=== PATIENT | female | born 1975 | race Two or more races ===

== ENCOUNTER 2016-10-05 10:38 | Day surgery (SDC) | payer OTHER ==
[~2016-10-05 10:38] MED LIST: CETI10TA22 PO; FLUT9.9S NS; LISI1TAB3 PO; MULT-460 PO; NORE0.3520 PO
[2016-10-05] MEDS ORDERED: PROPOFOL 20 ML IV ONE (10:50)
[2016-10-05] MEDS ORDERED: SURGICEL HEMOSTAT 4X8 EACH. ONE (10:50)
[2016-10-05] MEDS ORDERED: LIDOCAINE 2% PF Vial for OR 5 ML VIAL. ONE (10:50)
[2016-10-05] MEDS ORDERED: ROCURONIUM 50 MG/5 ML VIAL. ONE (10:50)
[2016-10-05] MEDS ORDERED: fentaNYL PF VIAL 250 MCG/5 ML VIAL ONE (10:51)
[2016-10-05] MEDS ORDERED: BUPIVAC MPF-EPI 0.5%-1:200000 30 ML VIAL. ONE (10:51)
[2016-10-05] MEDS ORDERED: DEXAMETHASONE SOD PHOS 20 MG/5 ML VIAL. ONE (10:51)
[2016-10-05] MEDS ORDERED: IOHEXOL 300 MG/ML 50 ML VIAL. ONE (10:51)
[2016-10-05] MEDS ORDERED: MIDAZOLAM HCL/PF 2 MG/2 ML VIAL. ONE (10:51)
[2016-10-05] MEDS ORDERED: ONDANSETRON PF 4 MG/2 ML VIAL. ONE (10:51)
[2016-10-05] MEDS ORDERED: fentaNYL PF VIAL 100 MCG/2 ML VIAL IV PRN ×2 (11:00)
[2016-10-05] MEDS ORDERED: HYDROmorphone 2 MG/ML VIAL IV PRN (11:00)
[2016-10-05] MEDS ORDERED: LIDOCAINE 1% 1 ML SYRINGE. ID PRN (11:00)
[2016-10-05] MEDS ORDERED: ONDANSETRON PF 4 MG/2 ML VIAL. IV PRN (11:00)
[2016-10-05] MEDS ORDERED: PROCHLORPERAZINE 10 MG/2 ML VIAL. IV PRN (11:00)
[2016-10-05] MEDS ORDERED: IV RINGERS,LACTATED 1000ML 1,000 ML IV SCH (11:00)
[2016-10-05] MEDS ORDERED: MORPHINE SULFATE 2 MG/ML DISP.SYRIN. IV PRN (11:00)
[2016-10-05] MEDS ORDERED: KETOROLAC 60 MG/2 ML INJ FOR OR. ONE (12:54)
[2016-10-05] MEDS ORDERED: GLYCOPYRROLATE 1 MG/5 ML VIAL. ONE (13:05)
[2016-10-05] MEDS ORDERED: NEOSTIGMINE METHYLSULFATE 5 MG/5 ML SYRINGE. ONE (13:05)
--- NOTE | 2016-10-05 13:34 | RAD ---
Intraoperative cholangiogram History: Left, cholecystectomy. Procedure: One fluoroscopic image was obtained of the right upper quadrant. The cystic duct was cannulated with surgeon and contrast was injected. Total fluoroscopic time was 12 seconds. Findings: The common hepatic bile duct and common bile duct are patent, without evidence of intraluminal filling defect or obstruction. Contrast empties normally into the duodenum. Impression: Unremarkable intraoperative cholangiogram. No evidence of choledocholithiasis.
[2016-10-05 14:01] LABS: NEG OBC UR NEG; POS OBC UR POS
[2016-10-05] MEDS ORDERED: OXYC-323 PO (14:10)
--- NOTE | 2016-10-05 14:12 | PDOC ---
BRIEF OPERATIVE NOTE Pre-Op Diagnosis cholelithiasis lap balbir, ioc k marques pitts ebl 10 ivf 1000 prabhu well to rr stable. CHERYL LEE MD Oct 05, 2016 14:12
[2016-10-05] MEDS ORDERED: oxyCODONE/APAP 5/325 1 TAB TABLET PO ONE ×2 (14:30)
[2016-10-05 15:25] VITALS: BP 150/71
--- NOTE | 2016-10-07 01:21 | OP ---
DATE OF SURGERY: 10/05/2016 PREOPERATIVE DIAGNOSIS: Symptomatic cholelithiasis. POSTOPERATIVE DIAGNOSIS: Symptomatic cholelithiasis. PROCEDURE: Laparoscopic cholecystectomy with intraoperative cholangiogram. SURGEON: Cheryl Lee M.D. ANESTHESIA: General. ESTIMATED BLOOD LOSS: 10 mL. INTRAVENOUS FLUIDS: 1000 mL. INDICATIONS: The patient is a 40-year-old female who has symptoms consistent with biliary colic. She is here for cholecystectomy. FINDINGS: Intraoperative cholangiogram is normal. DESCRIPTION OF PROCEDURE: After informed consent was obtained, the patient was taken to the operating room and placed in supine position. After adequate induction of general anesthesia, she was prepped and draped in usual sterile fashion. An umbilical skin incision was made with a scalpel, subcutaneous tissues with a hemostat. [facility] was used to grab the fascia and lift it anteriorly. Veress was used to gain access to the peritoneal cavity. Low opening pressures confirmed intraperitoneal placement of Veress. Pneumoperitoneum to 15 mmHg was established followed by placement of 5 mm port. A 5 mm 30 degree lens was inserted, which revealed good port placement. No evidence of entry trauma. She was placed head up, rotated towards her left. Three additional ports were placed under direct vision. The sites were injected with local anesthetic. Skin incisions were made and an 11 mm epigastric and two 5 mm right lateral ports were placed. The fundus of the gallbladder was retracted over liver and slightly towards the right. Infundibulum was retracted towards the right and towards her toes to open triangle of Calot. The leading peritoneal edge was scored with cautery medially and laterally and carried back towards the liver at the level of the infundibulum. [place] dissector was then used to dissect out the triangle of Calot. At the completion of dissection, 2 structures were seen leading directly to the gallbladder, one was a cystic artery, one was a cystic duct. The gallbladder had been dissected away from the liver bed and the gallbladder had been dissected away from the cystic plate. There was no extraneous tissue within the triangle of Calot and the base of the gallbladder was free of extraneous tissue. Two clips were placed on cystic artery proximally, one distally and a clip was placed on cystic duct adjacent to the gallbladder. Ductotomy was made with scissors. Intraoperative cholangiogram showed free flow of contrast. The cystic duct, common bile duct, common hepatic, left and right hepatics, intrahepatic radicles, free flow of contrast into the duodenum with no filling defects. The cholangiogram was interpreted as normal and completed. Also, of note, at the beginning of the surgery with traction on the infundibulum, there was a small defect in the infundibulum that was closed with a clip bumper operator, so there would not be spillage of bile throughout the case. After removing the cholangiogram catheter, 3 clips were placed on the cystic duct, distal to the ductotomy. Ductotomy completed with scissors. Care was taken to make sure that the clips encompass the entire diameter of the duct and did not encroach upon undissected tissue. The cystic artery was transected sharply. The gallbladder was removed from the bed of cautery and placed in laparoscopic bag and brought out through the epigastric incision. There was a little bit of bleeding from the liver bed that was controlled with cautery. Right upper quadrant was irrigated. Irrigant returned clear. No bleeding or bile leakage noted. Fascial closure device was used to close the fascia at the epigastric incision using 0 Vicryl suture. The ports removed under direct vision. They were hemostatic. Pneumoperitoneum was desufflated. Skin incisions were closed with 4-0 Monocryl in subcuticular fashion. Sterile dressings were placed. She tolerated the procedure well. There were no apparent complications. She was transferred in stable condition to the recovery room. Also of note, prior to removing the final port, the right upper quadrant was inspected one final time and that remained hemostatic and without bile leakage. CHERYL LEE MD DR: THERESA/thierno JOB#: [id number] / [id number] ASYA Tavares MD
--- NOTE | 2016-10-09 13:12 | PATHOLOGY ---
PATHOLOGY REPORT * * * * * * * * FINAL DIAGNOSIS: Gallbladder, laparoscopic cholecystectomy: - Cholelithiasis. - Cholesterolosis. - Chronic cholecystitis. COMMENT: There is no evidence of malignancy. REPORT ELECTRONICALLY SIGNED BY: Tejas Calderon M.D. DATE/TIME: 10/09/2016 13:11 * * * * * * * * GROSS PATHOLOGY: Received in formalin labeled "Lizeth Dixon, gallbladder and contents," is a 9.5 x 3.0 x 2.8 cm, intact gallbladder with bile-stained serosal surfaces. Opening the gallbladder reveals a velvety, bile-stained mucosa with mild, diffuse cholesterolosis, and an average wall thickness of 0.1 cm. A single light green, nodular calculus is present, and no masses are noted grossly. [employer] sections from the body and fundus are submitted along with the proximal margin in cassette A1. (CAA; 10/08/2016) INITIAL CPT CODE(S): A; 54751 Professional services performed [email or web address] [address] Technical services performed by [facility] at [address] [place] [address] [address], [place] [address]. SPECIMEN(S) RECEIVED: A.Gallbladder and contents CLINICAL HISTORY: Cholelithiasis PATIENT: LIZETH DIXON /AGE: 610/29/1975 (Age: 40) PATIENT #: [id number] ALT CASE #: SPECIMEN COLLECTION DATE: 10/05/2016 SPECIMEN RECEIVED DATE: 10/05/2016 [facility] - [address] [place] [address] - PHONE: [phone] * * * END OF REPORT * * *
== END 2016-10-05 15:42 | disposition home or self-care (01) ==
LOC: SURG 10:38
PROVIDERS: ATTEND Surgery
DX: K80.80 Other cholelithiasis without obstruction (principal); K21.9 Gastro-esophageal reflux disease without esophagitis; I10 Essential (primary) hypertension
CPT/HCPCS: 47563; 74300; 81025; C1782; J0690; J0780; J1100; J1885; J2250; J2405; J2704; J2710; J3010; J3490; J7030; Q9967

== ENCOUNTER → 2018-02-10 | Outpatient (CLI) | payer OTHER ==
[~2018-02-10] MED LIST changes: +OXYC-323 PO
--- NOTE | 2018-02-10 12:39 | KCIC ---
EXAM: Bilateral screening mammogram. HISTORY: 42-year-old female presents for screening mammography. TECHNIQUE: Full-field digital craniocaudal and mediolateral oblique views of both breasts are obtained for evaluation. Computer aided detection with Appstarter[employer] software version 9.3 was applied. COMPARISON: None. This is a baseline mammogram. BREAST PARENCHYMAL DENSITY: Level C - Heterogeneously dense. FINDINGS: There is no suspicious mass, microcalcification or region of architectural distortion. There are benign calcifications scattered throughout both breasts. IMPRESSION: BI-RADS Category 2: Benign finding(s). RECOMMENDATION: Annual mammography is recommended. If your mammogram demonstrates that you have dense breast tissue, which could hide abnormalities, and if you have other risk factors for breast cancer that have been identified, you might benefit from supplemental screening tests that may be suggested by your ordering physician. Dense breast tissue, in and of itself, is a relatively common condition. This information is not provided to cause undue concern, but rather to raise your awareness and to promote discussion with your physician regarding the presence of other risk factors, in addition to dense breast tissue. A report of your mammography results will be sent to you and your physician. You should contact your physician if you have any questions or concerns regarding this report. Mammography is a sensitive method for finding small breast cancers, but it does not detect them all and is not a substitute for careful clinical examination. A negative mammogram does not negate a clinically suspicious finding and should not result in delay in biopsying a clinically suspicious abnormality. PQRS compliance statement - Patient information was entered into a reminder system with a target due date for the next mammogram. "Our facility is accredited by the [employer] Mammography Program." Electronically signed by: Genia Stephens MD (02/10/2018 12:36 PM) [id number]
== END | disposition home or self-care (01) ==
LOC: KCIC MAMMO 11:32
PROVIDERS: ATTEND Family Medicine
DX: Z12.31 Encounter for screening mammogram for malignant neoplasm of breast (principal)
CPT/HCPCS: 77067